=== PATIENT | male | born 1975 | race Caucasian/White ===

== ENCOUNTER 2017-04-11 11:18 | Emergency (ER) | payer SELFPAY ==
[~2017-04-11] VITALS: Ht 162.6 cm; Wt 85.0 kg
[2017-04-11] MEDS ORDERED: BACITRACIN ZINC OINT UDPKT TOP ONE (12:30)
[2017-04-11] MEDS ORDERED: LIDOCAINE HCL 1% 20ML VIAL (Pyxis) INJ MC ONE (12:30)
[2017-04-11] MEDS ORDERED: TETANUS, DIPHTHERIA, PERTUSSIS VAC/PF 0.5ML (>7YR OLD) IM ONE (12:30)
[2017-04-11 13:51] VITALS: BP 112/65
== END 2017-04-11 14:14 | disposition home or self-care (01) ==
LOC: ER 14:01
DX: S61.412A Laceration without foreign body of left hand, initial encounter (principal); W11.XXXA Fall on and from ladder, initial encounter; Y93.89 Activity, other specified; Y99.8 Other external cause status; Y92.89 Other specified places as the place of occurrence of the external cause
CPT/HCPCS: 12002; 90471; 90715; 99283; J3490; Z7610